=== PATIENT | female | born 1935 | race Caucasian/White ===

== ENCOUNTER 2021-07-01 17:46 | Inpatient (IN) | payer OTHER, MEDICARE ==
[2021-07-01] MEDS ORDERED: ACETAMINOPHEN 1000 MG/100 ML BAG IVPB ONE (20:52)
[2021-07-01 21:04] LABS: BASO % 0.1 % (0-2.0); HEMATOCRIT 34.2 % (32.4-45.2); HEMOGLOBIN 11.6 GM/dL (10.7-15.3); LYMPH % 4.5 % (8-40); MCH 32.6 pg (25.7-33.7); MCHC 33.8 g/dl (32.0-36.0); MEAN CELL VOLUME 96.5 fl (80-96); MEAN PLT VOLUME 8.5 fl (7.5-11.1); NEUT % 85.4 % (42.8-82.8); PLATELET COUNT 210 10^3/uL (134-434); RBC 3.55 M/mm3 (3.60-5.2); RDW 14.2 % (11.6-15.6); WHITE BLOOD COUNT 10.2 K/mm3 (4.0-10.0)
[2021-07-01] MEDS ORDERED: ACETAMINOPHEN INJECTION 100 ML IVPB ONE (21:06)
[2021-07-01 21:31] LABS: ALBUMIN 2.7 g/dl (3.4-5.0); BLOOD UREA NITROGEN 19.7 mg/dL (7-18); CALCIUM 8.5 mg/dL (8.5-10.1)
[2021-07-01 21:34] LABS: CREATININE 0.6 mg/dL (0.55-1.3)
[2021-07-01 21:36] LABS: BILIRUBIN,TOTAL 1.3 mg/dL (0.2-1); TOT PROT 5.7 g/dl (6.4-8.2)
[2021-07-02] MEDS ORDERED: DEXTROSE 5%-0.45% SALINE 1,000 ML IV SCH (01:00)
[2021-07-02] MEDS: ACETAMINOPHEN 325 MG TABLET (FP) PO PRN (08:56)
[2021-07-02 10:03] LABS: BASO % 0.2 % (0-2.0); EOS % 0.6 % (0-4.5); HEMATOCRIT 36.9 % (32.4-45.2); HEMOGLOBIN 12.1 GM/dL (10.7-15.3); LYMPH % 7.4 % (8-40); MCH 32.1 pg (25.7-33.7); MCHC 32.9 g/dl (32.0-36.0); MEAN CELL VOLUME 97.8 fl (80-96); MEAN PLT VOLUME 8.9 fl (7.5-11.1); MONO % 8.4 % (3.8-10.2); NEUT % 83.4 % (42.8-82.8); PLATELET COUNT 271 10^3/uL (134-434); RBC 3.78 M/mm3 (3.60-5.2); WHITE BLOOD COUNT 7.2 K/mm3 (4.0-10.0)
[2021-07-02] MEDS: LIDOCAINE 5% TOPICAL PATCH TP SCH (10:06)
[2021-07-02] MEDS: ENOXAPARIN NA (PORCINE) 40 MG/0.4 ML DISP.SYRIN SQ SCH (10:07)
[2021-07-02 10:49] LABS: N-TERMINAL BNP 829.5 pg/ml (5-450)
[2021-07-02] MEDS ORDERED: INSULIN (NOVOLOG) ASPART 100 UNITS/ML 10ML VIAL ONE (11:47)
[2021-07-02] MEDS ORDERED: FUROSEMIDE 40 MG TABLET (FP) PO ONE (16:09)
[2021-07-02] MEDS: FUROSEMIDE 40 MG/4 ML INJECTABLE VIAL IVPUSH SCH (16:28)
[2021-07-02] MEDS: LIDOCAINE PATCH REMOVAL MC SCH (21:43)
[2021-07-03] MEDS: ACETAMINOPHEN 325 MG TABLET (FP) PO PRN (09:29)
[2021-07-03] MEDS: FUROSEMIDE 40 MG/4 ML INJECTABLE VIAL IVPUSH SCH (09:46)
[2021-07-03] MEDS: ENOXAPARIN NA (PORCINE) 40 MG/0.4 ML DISP.SYRIN SQ SCH (09:47)
[2021-07-03] MEDS: LIDOCAINE 5% TOPICAL PATCH TP SCH (09:48)
[2021-07-03 10:26] LABS: BASO % 0.5 % (0-2.0); EOS % 1.9 % (0-4.5); HEMOGLOBIN 11.5 GM/dL (10.7-15.3); MCH 32.2 pg (25.7-33.7); MCHC 33.9 g/dl (32.0-36.0); MEAN PLT VOLUME 8.2 fl (7.5-11.1); MONO % 10.1 % (3.8-10.2); NEUT % 76.5 % (42.8-82.8); PLATELET COUNT 257 10^3/uL (134-434); RBC 3.58 M/mm3 (3.60-5.2); RDW 13.7 % (11.6-15.6); WHITE BLOOD COUNT 6.2 K/mm3 (4.0-10.0)
[2021-07-03 10:47] LABS: ALBUMIN 2.4 g/dl (3.4-5.0); CALCIUM 8.4 mg/dL (8.5-10.1)
[2021-07-03 10:50] LABS: CREATININE 0.5 mg/dL (0.55-1.3); PHOSPHOROUS 2.8 mg/dL (2.5-4.9)
[2021-07-03 10:52] LABS: BILIRUBIN,TOTAL 0.6 mg/dL (0.2-1); TOT PROT 5.3 g/dl (6.4-8.2)
[2021-07-03] MEDS: LIDOCAINE PATCH REMOVAL MC SCH (21:44)
[2021-07-04] MEDS: FUROSEMIDE 40 MG/4 ML INJECTABLE VIAL IVPUSH SCH (09:09)
[2021-07-04] MEDS: ENOXAPARIN NA (PORCINE) 40 MG/0.4 ML DISP.SYRIN SQ SCH (09:09)
[2021-07-04] MEDS: LIDOCAINE 5% TOPICAL PATCH TP SCH (09:09)
[2021-07-04 10:51] VITALS: BMI 17.3
[2021-07-04 14:16] VITALS: BP 121/74; PULSE 73; TEMP 98
== END 2021-07-04 20:00 | DRG 542 ==
LOC: JER 17:46 → JERBED 07-02 00:25 → J6S 07-02 06:48
PROVIDERS: ADMIT Internal Medicine; ATTEND Internal Medicine
DX: M48.56XA Collapsed vertebra, not elsewhere classified, lumbar region, initial encounter for fracture (principal); E43 Unspecified severe protein-calorie malnutrition; Z68.1 Body mass index [BMI] 19.9 or less, adult; R64 Cachexia; M51.27 Other intervertebral disc displacement, lumbosacral region; M79.89 Other specified soft tissue disorders
CPT/HCPCS: 36415; 71045-TC-FY; 71250-TC; 72131-TC; 80048; 80053; 83735; 83880; 84100; 84443; 85025; 93005; 93010; 93306-TC; 93970-TC; 97116-GP; 97162-GP; 99285-25; C9803-CS; U0003; U0005

== ENCOUNTER 2022-09-26 10:49 | Inpatient (IN) | payer OTHER ==
[2022-09-26] MEDS ORDERED: ACETAMINOPHEN 1000 MG/100 ML BAG IVPB ONE (13:15)
[2022-09-26] MEDS ORDERED: ACETAMINOPHEN INJECTION 100 ML IVPB ONE (13:47)
[2022-09-26 14:00] LABS: EPI CELLS 3 /uL (0-25.1); HYALINE CASTS 0 /uL (0-3.1); URINE APPEARANCE CLOUDY; URINE BACTERIA 23 /uL (0-1359); URINE BILIRUBIN NEGATIVE (NEGATIVE); URINE COLOR YELLOW; URINE GLUCOSE (UA) NEGATIVE (NEGATIVE); URINE KETONE 1+ (NEGATIVE); URINE LEUK ESTERASE 3+ (NEGATIVE); URINE NITRITE NEGATIVE (NEGATIVE); URINE PROTEIN 1+ (NEGATIVE); URINE RBC 53 /uL (0-23.9); URINE UROBILINOGEN 0.2 mg/dL (0.2-1.0); URINE WBC 2740 /uL (0-25.8)
[2022-09-26 14:09] LABS: HEMATOCRIT 39.9 % (32.4-45.2); HEMOGLOBIN 13.4 GM/dL (10.7-15.3); MCH 30.7 pg (25.7-33.7); MCHC 33.6 g/dl (32.0-36.0); MEAN CELL VOLUME 91.5 fl (80-96); RBC 4.35 M/mm3 (3.60-5.2); RDW 13.7 % (11.6-15.6)
[2022-09-26 14:11] LABS: WHITE BLOOD COUNT 11.8 K/mm3 (4.0-10.0)
[2022-09-26 14:12] LABS: MEAN PLT VOLUME 8.7 fl (7.5-11.1); PLATELET COUNT 443 10^3/uL (134-434)
[2022-09-26] MEDS ORDERED: CEFTRIAXONE 1 GM/50 ML BAG ONE ×2 (14:16→14:34)
[2022-09-26 14:19] LABS: POTASSIUM 5.1 mmol/L (3.5-5.1)
[2022-09-26 14:21] LABS: BLOOD UREA NITROGEN 34.8 mg/dL (7-18)
[2022-09-26 14:22] LABS: ALBUMIN 2.5 g/dl (3.4-5.0)
[2022-09-26 14:25] LABS: CREATININE 0.9 mg/dL (0.55-1.3)
[2022-09-26 14:26] LABS: BILIRUBIN,TOTAL 0.5 mg/dL (0.2-1); TOT PROT 6.6 g/dl (6.4-8.2)
[2022-09-26 14:33] LABS: CALCIUM 8.8 mg/dL (8.5-10.1)
[2022-09-26 15:01] LABS: ANISOCYTOSIS 0; HELMET CELLS 0; HOWELL-JOLLY BODIES 0; MACROCYTOSIS 0; OVALOCYTE 0; ROULEAU 0; SICKELED CELLS 0; TARGET CELLS 0; TEAR DROP CELLS 0; TOXIC GRANULATION 0
[2022-09-26 15:21] LABS: ACTIVATED PTT 35.1 SECONDS (25.2-36.5); INR 1.13 (0.83-1.09); PROTHROMBIN TIME (PATIENT) 13.1 SEC (9.7-13.0)
[2022-09-26] MEDS ORDERED: ACETAMINOPHEN 1000 MG/100 ML BAG IVPB PRN (16:15)
[2022-09-26] MEDS ORDERED: MELATONIN 5 MG TABLETS PO SCH (22:00)
[2022-09-26] MEDS ORDERED: propRANOLol HCL 10 MG TABLET PO SCH (22:00)
[2022-09-26] MEDS ORDERED: MELATONIN 5 MG TABLETS ONE (22:15)
[2022-09-26] MEDS ORDERED: propRANOLol HCL 10 MG TABLET ONE (22:16)
[2022-09-27 08:03] LABS: BASO % 0.1 % (0-2.0); EOS % 3.4 % (0-4.5); HEMATOCRIT 38.8 % (32.4-45.2); HEMOGLOBIN 13.1 GM/dL (10.7-15.3); LYMPH % 10.3 % (8-40); MCHC 33.8 g/dl (32.0-36.0); MEAN CELL VOLUME 91.6 fl (80-96); MEAN PLT VOLUME 8.1 fl (7.5-11.1); MONO % 8.1 % (3.8-10.2); NEUT % 78.1 % (42.8-82.8); PLATELET COUNT 353 10^3/uL (134-434); RBC 4.23 M/mm3 (3.60-5.2); RDW 13.6 % (11.6-15.6); WHITE BLOOD COUNT 8.8 K/mm3 (4.0-10.0)
[2022-09-27 08:32] LABS: POTASSIUM 4.1 mmol/L (3.5-5.1)
[2022-09-27 08:42] LABS: CALCIUM 8.8 mg/dL (8.5-10.1)
[2022-09-27 08:43] LABS: BLOOD UREA NITROGEN 30.1 mg/dL (7-18)
[2022-09-27 08:46] LABS: CREATININE 0.7 mg/dL (0.55-1.3)
[2022-09-27] MEDS ORDERED: ceFAZolin SODIUM 1 GM VIAL ONE ×2 (09:03→09:09)
[2022-09-27] MEDS ORDERED: oxyCODONE HCL 5 MG TABLET PO PRN (09:52)
[2022-09-27] MEDS ORDERED: ceFAZolin SODIUM 1 GM VIAL IVPB ONE ×2 (10:00)
[2022-09-27] MEDS ORDERED: CEFTRIAXONE 1 GM in DEXTROSE 5%-WATER - 50 ML IVPB SCH (10:00)
[2022-09-27] MEDS ORDERED: MIDAZOLAM HCL 2 MG/2 ML SINGLE DOSE VIAL ONE (11:00)
[2022-09-27] MEDS ORDERED: ONDANSETRON 4 MG/2 ML VIAL IVPUSH PRN ×2 (11:06→11:47)
[2022-09-27] MEDS ORDERED: LACTATED RINGERS SOLUTION 1,000 ML IV SCH ×2 (11:15→11:47)
[2022-09-27] MEDS ORDERED: ACETAMINOPHEN 1000 MG/100 ML BAG IVPB PRN (11:47)
[2022-09-27] MEDS: CEFAZOLIN SODIUM 2 GM in DEXTROSE 5%-WATER 100 ML IVPB SCH (17:08)
[2022-09-27] MEDS ORDERED: CEFAZOLIN SODIUM 2 GM in DEXTROSE 5%-WATER 100 ML IVPB SCH (18:00)
[2022-09-27] MEDS: oxyCODONE HCL 5 MG TABLET PO PRN (21:34)
[2022-09-27] MEDS: SENNOSIDES/DOCUSATE COMBO (SENNA PLUS) TABLET (UD) PO SCH (21:34)
[2022-09-27] MEDS: MELATONIN 5 MG TABLETS PO SCH (21:35)
[2022-09-27] MEDS ORDERED: SENNOSIDES/DOCUSATE COMBO (SENNA PLUS) TABLET (UD) PO SCH (22:00)
[2022-09-27] MEDS: propRANOLol HCL 10 MG TABLET PO SCH (23:18)
[2022-09-28] MEDS: CEFAZOLIN SODIUM 2 GM in DEXTROSE 5%-WATER 100 ML IVPB SCH (01:04)
[2022-09-28] MEDS ORDERED: ASPIRIN 325 MG TABLET PO SCH (08:00)
[2022-09-28] MEDS: ASPIRIN 325 MG TABLET PO SCH (08:33)
[2022-09-28] MEDS: PANTOPRAZOLE 40 MG TABLET PO SCH (09:15)
[2022-09-28] MEDS: oxyCODONE HCL 5 MG TABLET PO PRN ×2 (09:16→15:07)
[2022-09-28] MEDS: MULTIVITAMINS (DAILY MVI) TABLET (FP) PO SCH (09:16)
[2022-09-28] MEDS: SENNOSIDES/DOCUSATE COMBO (SENNA PLUS) TABLET (UD) PO SCH ×2 (09:16→22:16)
[2022-09-28] MEDS ORDERED: CEFTRIAXONE 1 GM in DEXTROSE 5%-WATER - 50 ML IVPB SCH (10:00)
[2022-09-28] MEDS ORDERED: MULTIVITAMINS (DAILY MVI) TABLET (FP) PO SCH (10:00)
[2022-09-28] MEDS ORDERED: PANTOPRAZOLE 40 MG TABLET PO SCH (10:00)
[2022-09-28 10:31] LABS: HEMATOCRIT 30.7 % (32.4-45.2); HEMOGLOBIN 10.3 GM/dL (10.7-15.3); MCH 30.5 pg (25.7-33.7); MCHC 33.4 g/dl (32.0-36.0); MEAN CELL VOLUME 91.2 fl (80-96); MEAN PLT VOLUME 8.2 fl (7.5-11.1); PLATELET COUNT 365 10^3/uL (134-434); RBC 3.36 M/mm3 (3.60-5.2); RDW 13.6 % (11.6-15.6); WHITE BLOOD COUNT 13.3 K/mm3 (4.0-10.0)
[2022-09-28 11:08] LABS: POTASSIUM 4.3 mmol/L (3.5-5.1)
[2022-09-28] MEDS: ENOXAPARIN NA (PORCINE) 40 MG/0.4 ML DISP.SYRIN SQ SCH (11:47)
[2022-09-28 11:58] LABS: ALBUMIN 2.4 g/dl (3.4-5.0); BLOOD UREA NITROGEN 43.1 mg/dL (7-18); CALCIUM 9.1 mg/dL (8.5-10.1)
[2022-09-28 12:03] LABS: TOT PROT 5.9 g/dl (6.4-8.2)
[2022-09-28 12:04] LABS: BILIRUBIN,TOTAL 0.3 mg/dL (0.2-1)
[2022-09-28] MEDS ORDERED: LACTATED RINGERS SOLUTION 1,000 ML/1,000 ML INFUS.BAG IV SCH (18:45)
[2022-09-28] MEDS: propRANOLol HCL 10 MG TABLET PO SCH (22:16)
[2022-09-28] MEDS: MELATONIN 5 MG TABLETS PO SCH (22:16)
[2022-09-29] MEDS: oxyCODONE HCL 5 MG TABLET PO PRN ×2 (02:02→09:03)
[2022-09-29 06:05] VITALS: BP 110/58
[2022-09-29] MEDS: ASPIRIN 325 MG TABLET PO SCH (08:38)
[2022-09-29] MEDS: ENOXAPARIN NA (PORCINE) 40 MG/0.4 ML DISP.SYRIN SQ SCH (09:02)
[2022-09-29] MEDS: MULTIVITAMINS (DAILY MVI) TABLET (FP) PO SCH (09:02)
[2022-09-29] MEDS: PANTOPRAZOLE 40 MG TABLET PO SCH (09:02)
[2022-09-29] MEDS: SENNOSIDES/DOCUSATE COMBO (SENNA PLUS) TABLET (UD) PO SCH (09:03)
[2022-09-29 09:24] VITALS: RESP 16
[2022-09-29 09:58] VITALS: PULSE 73; TEMP 98.9
[2022-09-29 10:51] LABS: BASO % 0.2 % (0-2.0); HEMATOCRIT 28.6 % (32.4-45.2); HEMOGLOBIN 9.5 GM/dL (10.7-15.3); LYMPH % 13.2 % (8-40); MCH 31.5 pg (25.7-33.7); MCHC 33.3 g/dl (32.0-36.0); MEAN CELL VOLUME 94.6 fl (80-96); MEAN PLT VOLUME 8.8 fl (7.5-11.1); MONO % 12.8 % (3.8-10.2); NEUT % 72.8 % (42.8-82.8); PLATELET COUNT 269 10^3/uL (134-434); RBC 3.02 M/mm3 (3.60-5.2); RDW 13.5 % (11.6-15.6); WHITE BLOOD COUNT 8.9 K/mm3 (4.0-10.0)
[2022-09-29 11:04] LABS: POTASSIUM 3.8 mmol/L (3.5-5.1)
[2022-09-29 11:26] LABS: BLOOD UREA NITROGEN 38.1 mg/dL (7-18); CALCIUM 8.2 mg/dL (8.5-10.1)
[2022-09-29 11:27] LABS: ALBUMIN 2.1 g/dl (3.4-5.0)
[2022-09-29 11:30] LABS: BILIRUBIN,TOTAL 0.4 mg/dL (0.2-1); CREATININE 0.9 mg/dL (0.55-1.3); PHOSPHOROUS 2.2 mg/dL (2.5-4.9)
[2022-09-29 11:31] LABS: TOT PROT 5.4 g/dl (6.4-8.2)
[2022-09-29 12:17] VITALS: BMI 17.5
[2022-09-29] MEDS ORDERED: oxyCODONE HCL 5 MG TABLET PO ONE (14:26)
== END 2022-09-29 14:30 | disposition home health service (06) | DRG 521 ==
LOC: JER 10:49 → JERBED 13:15 → J6S 09-27 12:30
PROVIDERS: ADMIT Internal Medicine; ATTEND Internal Medicine
PROC: 0SRR0JZ Replacement of Right Hip Joint, Femoral Surface with Synthetic Substitute, Open Approach (ICD-10-PCS; principal; 2022-09-27 09:00)
DX: M80.051A Age-related osteoporosis with current pathological fracture, right femur, initial encounter for fracture (principal); E43 Unspecified severe protein-calorie malnutrition; N39.0 Urinary tract infection, site not specified; Z68.1 Body mass index [BMI] 19.9 or less, adult; M80.851A Other osteoporosis with current pathological fracture, right femur, initial encounter for fracture; S72.091A Other fracture of head and neck of right femur, initial encounter for closed fracture; F03.90 Unspecified dementia, unspecified severity, without behavioral disturbance, psychotic disturbance, mood disturbance, and anxiety; I10 Essential (primary) hypertension; D72.829 Elevated white blood cell count, unspecified; D64.9 Anemia, unspecified; R73.9 Hyperglycemia, unspecified
CPT/HCPCS: 36415; 72170-TC-FY; 73502-TC-RT-FY; 73552-TC-RT-FY; 73562-TC-RT-FY; 80048; 80053; 81003; 82306; 83735; 84100; 85025; 85027; 85610; 85730; 86900; 87086; 88305-TC; 88311-TC; 93005; 93010; 94010; 94760; 97116-GP; 97162-GP; 99285-25; C1776

== ENCOUNTER 2023-05-21 22:05 | Emergency (ER) | payer OTHER ==
[2023-05-21 22:48] VITALS: BP 183/115; PULSE 67; TEMP 98.3; BMI 18.3
[2023-05-21 22:58] LABS: BASO % 0.1 % (0-2.0); EOS % 1.2 % (0-4.5); HEMATOCRIT 39.9 % (32.4-45.2); HEMOGLOBIN 13.2 GM/dL (10.7-15.3); LYMPH % 13.3 % (8-40); MCH 30.7 pg (25.7-33.7); MCHC 33.2 g/dl (32.0-36.0); MEAN CELL VOLUME 92.6 fl (80-96); MEAN PLT VOLUME 8.2 fl (7.5-11.1); MONO % 7.6 % (3.8-10.2); NEUT % 77.8 % (42.8-82.8); PLATELET COUNT 270 10^3/uL (134-434); RBC 4.31 M/mm3 (3.60-5.2); RDW 14.2 % (11.6-15.6); WHITE BLOOD COUNT 9.2 K/mm3 (4.0-10.0)
[2023-05-21] MEDS: FOLIC ACID INJECTION - 1 MG, THIAMINE HCL 100 MG, MULTIVIT INJECTION ADULT 10 ML in SOD... IVPB ONE (23:05)
[2023-05-22 01:07] LABS: POTASSIUM 4.5 mmol/L (3.5-5.1)
[2023-05-22 01:11] LABS: BLOOD UREA NITROGEN 22.4 mg/dL (7-18); CALCIUM 8.9 mg/dL (8.5-10.1)
[2023-05-22 01:14] LABS: CREATININE 0.8 mg/dL (0.55-1.3)
[2023-05-22 01:16] LABS: BILIRUBIN,TOTAL 0.3 mg/dL (0.2-1); TOT PROT 7.1 g/dl (6.4-8.2)
== END 2023-05-22 01:01 | disposition home or self-care (01) ==
LOC: JER 22:05
PROC: 3E033GC Introduction of Other Therapeutic Substance into Peripheral Vein, Percutaneous Approach (ICD-10-PCS; principal; 2023-05-21)
PROC: 3E033GC Introduction of Other Therapeutic Substance into Peripheral Vein, Percutaneous Approach (ICD-10-PCS; 2023-05-21)
PROC: 3E033GC Introduction of Other Therapeutic Substance into Peripheral Vein, Percutaneous Approach (ICD-10-PCS; 2023-05-22)
PROC: 3E033GC Introduction of Other Therapeutic Substance into Peripheral Vein, Percutaneous Approach (ICD-10-PCS; 2023-05-22)
PROC: 3E033GC Introduction of Other Therapeutic Substance into Peripheral Vein, Percutaneous Approach (ICD-10-PCS; 2023-05-22)
PROC: 3E033GC Introduction of Other Therapeutic Substance into Peripheral Vein, Percutaneous Approach (ICD-10-PCS; 2023-05-22)
PROC: 3E033GC Introduction of Other Therapeutic Substance into Peripheral Vein, Percutaneous Approach (ICD-10-PCS; 2023-05-22)
PROC: 3E033GC Introduction of Other Therapeutic Substance into Peripheral Vein, Percutaneous Approach (ICD-10-PCS; 2023-05-22)
DX: Z04.3 Encounter for examination and observation following other accident (principal); W19.XXXA Unspecified fall, initial encounter; Y92.009 Unspecified place in unspecified non-institutional (private) residence as the place of occurrence of the external cause
CPT/HCPCS: 36415; 70450-TC; 71045-TC-FY; 72125-TC; 72170-TC-FY; 80053; 84484; 85025; 93005; 93010; 99285-25